=== PATIENT | male | born 1960 | race Caucasian/White ===

== ENCOUNTER 2017-05-14 12:02 | Emergency (ER) | payer OTHER ==
[~2017-05-14] VITALS: Ht 172.7 cm; Wt 88.5 kg
[~2017-05-14 12:02] MED LIST: CIPRO500 MG PO; FLOMAX0.4 MG PO; HYDROCODON-ACE1 EA10 PO
[2017-05-14] MEDS ORDERED: ZOFRAN ODT4 MG PO (13:20)
[2017-05-14] MEDS ORDERED: PERCOCET 5-3251 EACH PO (13:20)
== END 2017-05-14 13:30 | disposition home or self-care (01) ==
LOC: ED 12:02
DX: G89.3 Neoplasm related pain (acute) (chronic) (principal); C25.9 Malignant neoplasm of pancreas, unspecified; Z88.1 Allergy status to other antibiotic agents
CPT/HCPCS: 80053; 85025; 96361; 96374; 96375; 99283; J1170; J2405; J7040

== ENCOUNTER 2017-05-26 05:45 | Inpatient (IN) | payer OTHER ==
[~2017-05-26] VITALS: Ht 172.7 cm; Wt 87.5 kg
[~2017-05-26 05:45] MED LIST changes: +PERCOCET 5-3251 EACH PO; +ZOFRAN ODT4 MG PO
[2017-05-26] MEDS ORDERED: NALTREXONE HCL50 MG PO (06:06)
[2017-05-26] MEDS ORDERED: ASPIRIN EC650 MG PO (06:07)
[2017-05-26] MEDS ORDERED: [UNRECOGNIZED DRUG - OTHER] PO (06:08)
[2017-05-26] MEDS ORDERED: SIMILASE PO (06:08)
--- NOTE | 2017-05-26 11:43 | NUR ---
05/26/17 1143 [facility] SAT 100, O2 DECREASED TO 6L VIA MASK.
--- NOTE | 2017-05-26 13:13 | NUR ---
Patient arrived via stretcher to med surg room 119 on RA with sat of 93%. Patient requesting pain medication upon arrival for c/o abdominal pain 6/10 and siu cathater pain. 2mg of morphine given iv. New bag of IV fluid hung and IV abx running. ABD binder on and mepilex with opside intact without drainage. PANTERA intact with sero sang drainage. patient answers questions appropriatly.
--- NOTE | 2017-05-26 13:42 | NUR ---
PATIENT RESTING COMFTORABLY, PAIN CONTROLLED AT THIS TIME. PATIENT VITALS WITHIN NORMAL LIMITS AT THIS TIME.
--- NOTE | 2017-05-26 14:40 | NUR ---
PT IS RESTING IN BED WITH EYES CLOSED RESPERATIONS EVEN. PT WOKE UP FOR VITALS AND ASKED FOR A DRINK OF WATER THEN WENT BACK TO SLEEP. PT WAS NOT HUNGRY AND DID NOT EAT LUNCH
--- NOTE | 2017-05-26 15:04 | NUR ---
PATIENT PAIN LEVEL AT THIS TIME /10, PATIENT GIVEN 2 PERCOCET PO WITH JELLO AND CRACKERS. PATIENT AWAKE AND ALERT AT THIS TIME, REMAINS ON RA WITH PULSE OX ON. PATIENT'S SISTER IN THE ROOM. NO C/O OF NAUSEA. VITALS DONE.
--- NOTE | 2017-05-26 16:09 | NUR ---
PATIENT ASLEEP RESPERATIONS EVEN UNLABORED, NO S/S OF PAIN. VITALS TAKEN
[2017-05-26] MEDS ORDERED: ALPHA LIPOIC A300 MG PO (17:30)
--- NOTE | 2017-05-26 17:34 | NUR ---
PT IS RESTING IN BED WITH EYES CLOSED, WOKE UP LONG ENOUGH FOR ME TO TAKE A TEMPERATURE THEN FELL BACK ASLEEP. PT HAS NOT ATE DINNER YET
--- NOTE | 2017-05-26 18:40 | NUR ---
PATIENTS URINE OUTPUT IS LOW, 100MLS FOR THE PAST 4 HOURS, PATIENTS PANTERA EMPTIED FOR 150 MLS THIS HOUR. DRAINAGE HAS TURNED FROM SERO SANG TO SANG. DRAINAGE. PATIENT C/O FEELING DIZZY VITALS TAKEN AND REORTED TO DR BAEZA ORDERS RECEIVED FOR AN 8 PACK OF PLATLETS TO BE INFUSED, 2 UNITS OF PACKED RED BLOOD CELLS TO BE HELD, AND ABDOINAL BINDER TO BE IN PLACE AT ALL TIMES. ABDOMINAL BINDER HAS BEEN ON THIS PATIENT SINCE ARRIVAL TO THE FLOOR AND ABDOMINAL DRESSING IS CDI.
--- NOTE | 2017-05-26 18:45 | NUR ---
PATIENTS PANTERA EMPTIED AGAIN SANGUINOUS DRAINAGE AT THIS TIME 30 MLS
--- NOTE | 2017-05-26 19:00 | NUR ---
BEDSIDE SHIFT REPORT RECEIVED FROM BIB DUNLAP. PT IS CURRENTLY RESTING IN BED. TERRY DRAINING FREELY. IVF INFUSING WNL. FABI JUST RECEIVED ORDERS FROM DR. BAEZA TO ADMINSITER 8 PACK OF PLATELETS. PANTERA HAS BEEN DRAINING LARGE AMOUNTS OF SANGUINOUS FLUID. ABDOMINAL BINDER IN PLACE.
--- NOTE | 2017-05-26 20:42 | NUR ---
ASSESSMENT COMPLETE. ALERT/ORIENTED. REPORTS 9/10 ABDOMINAL PAIN, 2 TABS PERCOCET GIVEN. LUNGS CLEAR, RA. HR REGULAR. BOWEL TONES ACTIVE, DENIES NAUSEA. TERRY DRAINING FREELY. MIDLINE DRESSING C/D/I, PANTERA TO LOWER ABDOMEN, SMALL AMOUNT OF DRAINAGE PRESENT, EMPTIED DRAIN OF 80ML SANGUINOUS FLUID. SCD'S IN PLACE. CMS INTACT, NO EDEMA NOTED. ABDOMINAL BINDER IN PLACE. PT PROVIDED WITH SNACK WITH PO PAIN MEDS. DENIES FURTHER REQUESTS AT THIS TIME.
--- NOTE | 2017-05-26 21:00 | NUR ---
REPORT GIVEN FROM SYLVIA. SYLVIA REPORTS PANTERA HAS SLOWED DOWN ON OUTPUT SINCE START OF SHIFT. CALLED FOR UPDATE ON PLATLETS. 2 HOUR WAIT DUE TO THEM HAVING TO BROUGHT IN. UPDATED PATIENT ON CHANGE OF NURSING STAFF. UPDATED ON PLAN OF CARE WITH PLATELET DUE IN 2 HOURS AND PLAN FOR ANTIBIOTIC DUE AT 2200. PATIENT STATING THAT WAS FINE. REPOSITIONED IN BED. PILLOW PLACED UNDER R KNEE.
--- NOTE | 2017-05-26 21:35 | NUR ---
ANCEF STARTED. PATEINT RESTING IN BED WITH EYES CLOSED. PATIENT REQUESTING BLANKET TO SPLINT ABD. STATING PAINFUL IN LOWER R FLANK WHEN DEEP BREATHING. PATIENT EDUCATED ON IMPORTANCE OF DEEP BREATHING AND COUGHING. SPLINTING DEMONSTRATED.
--- NOTE | 2017-05-26 22:50 | NUR ---
patient sleeping with hob elevated. patient has no grimace on face. emptied jason for 30mls of seymour red blood. pateint stating no dizziness or lightheadedness at this time. will continue to monitor. updated patient that we plan of taking vitals at 0000. patient agreed. patient impatient with cares at times. updated on plan for platlets at 0100.
--- NOTE | 2017-05-27 00:15 | NUR ---
VITALS TAKEN. PLATELETS STARTED. PT TOLERATED FIRST 15 MINUTES OF INFUSION WITH NO ISSUES. INCREASED RATE OF INFUSION TO 150ML/HR. PATIENT RESTING IN BED WITH HOB SLIGHTLY ELEVATED. 30MLS OF MINESH RED BLOOD OUT OF PANTERA. PATIENT TALKED WITH US ABOUT CANCER DIAGNOSIS AND HOW IT HAS BEEN A TOUGH COUPLES YEARS. TALKED ABOUT PLAN OF CARE AND HOW FAMILY WILL BE IN TO SEE IN THE MORNING. PATIENT SPIRITS SEEM UP IN REGARDS TO DIAGNOSIS.
--- NOTE | 2017-05-27 02:15 | NUR ---
PLATELETS FINISHED. I AND O DONE. VITALS TAKEN. MAINTANCE FLUIDS RESTARTED.
--- NOTE | 2017-05-27 02:48 | NUR ---
PATIENT HAD LOW URINE OUTPUT ( ONLY 75MLS IN 4 HRS) CALLED DR. BAEZA FOR UPDATE ON URINE OUTPUT AND PANTERA DRAINAGE. NEW ORDER FOR 1 LR L BOLUS TO START NOW. UPDATED HIM ON PATIENTS CONDITION. NO OTHER NEW ORDER. PLAN FOR CBC IN AM. BLOOD ON HOLD FOR AM. LR BOLUS STARTED. PATIENT PLACED ON 1 L OF OXYGEN DUE TO DESATING WHILE SLEEPING TO 88. PATIENT UPDATED ON NEW ORDER. PATIENT REPORTS NO NEED FOR OTHER PAIN MEDICATION AT THIS TIME. WILL CONTINUE TO MONITOR.
--- NOTE | 2017-05-27 02:56 | NUR ---
DR. BAEZA CALLED FOR NEW ORDERS OF PT AND PTT TO BE DRAWN IN AM. UPDATED ORDERS.
--- NOTE | 2017-05-27 03:33 | NUR ---
PATIENT ROUNDED ON AFTER POST INFUSION VITALS COMPLETE. PATIENT SLEEPING WITH RR EVEN AND UNLABORED. CONT TO SAT 98 PERCENT WITH [address] HR IMPROVED. 80MLS OUR OF PANTERA. PAIN WELL CONTROLLED AT THIS TIME.
--- NOTE | 2017-05-27 04:09 | NUR ---
lr bolus finished. patient stating pain has increased. c/o upper abd spasms. morphine 2 mg given for pain. after infusion of morphine on pump patient able to rest with eyes closed and rr even. patient gets very nervous and anxious at times. needing a lot of reassurance.
--- NOTE | 2017-05-27 04:41 | NUR ---
PT HAS HAD INCREASED MINESH RED BLOOD OUT OF HIS PANTERA. ORDERS FROM DR. BAEZA TO GIVEN 8PACK OF PLATELETS. DRAINAGE FROM PANTERA HAS CONTINUED. DECREASED UOP FROM TERRY CATH. PATIENT DID RECEIVE 1L BOLUS OF LR. THE BOLUS DID INCREASED UOP. PATIENT IS PAINFUL WITH ANY TYPE OF MOVEMENT. VERY ANXIOUS AT TIMES. NEEDING A LOT OF REASSURANCE ABOUT MEDICATIONS, LABS, AND PLAN OF CARE. PATIENT HAS LABS IN AM AND TWO UNITS OF PRBC PENDING H AND H. NO DRAINAGE NOTED ON MIDLINE MEPILEX. QUARTER SIZE SHADOWING ON DRAIN DRESSING ON R LOWER QUADRANT. THIS HAS BEEN THE SAME AMOUNT THE ENTIRE SHIFT. ABD BINDER IS TO BE IN PLACE AT ALL TIMES.
--- NOTE | 2017-05-27 05:36 | NUR ---
LAB IN ROOM. PATIENT IS CURRENTLY RESTING IN BED. EYES CLOSED. RR EVEN AND UNLABORED.
--- NOTE | 2017-05-27 07:15 | NUR ---
BEDSIDE REPORT RECIEVED FROM EVELIO WATCH SUPERVISOR RN. PT AWAKE IN BED. COMPLAINS OF SPASMS IN ABD WITH ANY MOVEMENT. PANTERA EMPTIED FOR 55 ML SEROSANGUANOUS FLUID. DRAIN STRIPPED. PT GIVEN 2 MG MS AND PERCOCET BY BIB FRASER TO PREMEDICATE FOR REPOSITIONING. IV FLUIDS INFUSING. LIGHT YELLOW URINE NOTED IN TERRY BAG. PT USES CALL LIGHT APPROPRIATELY. ABD BINDER IN PLACE. LABS REVIEWED. NO CRITICAL VALUES OR CONCERNING TRENDS NOTED.
--- NOTE | 2017-05-27 08:02 | NUR ---
PT SLEEPING IN BED. RESP EVEN, UNLABOURED. O2 SATS 97% PER CONT PULSE OX.
--- NOTE | 2017-05-27 09:45 | NUR ---
SLEEPING CAR CONDUCTOR INITIATED. PT EDUCATED ON SLEEPING CAR CONDUCTOR. STATES FAMILIAR WITH IT, HAD ONE WITH PREVIOUS PROCEDURE. PT ABLE TO MOVE MUCH MORE FREELY THAN EARLIER THIS AM. PT MOVED UP IN BED PER PT REQUEST. TOLERATED POORLY. NOW SITTING UP IN BED FOR BREAKFAST. PANTERA EMPTIED 90 ML SEROSANGUANOUS FLUID. PT GIVEN ATIVAN FOR ANXIETY.
--- NOTE | 2017-05-27 10:01 | NUR ---
MED REC COMPLETE WITH PATIENT INTERVIEW AND PATIENT'S HOME MEDICATIONS. PATIENT FILLS AT [facility].
--- NOTE | 2017-05-27 12:00 | NUR ---
PT SLEEPING IN BED. SATS 97% ON 1 L O2. CHIEF INVESTIGATOR INFUSING. PT USING APPROPRIATELY. SMALL AMOUNT SEROSANGUANOUS DRAINAGE IN PANTERA. CALL LIGHT IN REACH. CONT PULSE OX IN PLACE.
--- NOTE | 2017-05-27 12:48 | NUR ---
PT SITTING IN BED, FINISHING LUNCH. SPEAKS QUIETLY, BUT CLEARLY. HE HAD A SENSE I KNEW ABOUT HIS CONDITION. HONEST, MINESH TALK. PT REQUESTED I CONTACT HIS OBSTETRICS GYNECOLOGY MD AND UPDATE HIM. I CALLED AND LEFT MSG. WILL FOLLOW UP. PT REQUESTED PRAYER. WILL FOLLOW NEEDED
--- NOTE | 2017-05-27 14:40 | NUR ---
RN TO ROOM. RADIO REPAIRMAN EMPTYING PANTERA. SEROSANGUANOUS DRAINAGE NOTED AROUND PANTERA SITE. PANTERA CONTINUOUSLY FILLING WITH SEROSANGUANOUS FLUID AFTER BEING EMPTIED. SLOWS AFTER APPROX 200 ML EMPTIED. THEN PT UP TO BSC AND THEN CHAIR WITH 1 PERSON ASSIST. DRAINAGE IN PANTERA CHANGED TO BRIGHT RED BLOODY LOOKING FLUID, THEN BACK TO SEROSANGUANOUS. UPDATED ON OUTPUT. NO NEW ORDERS RECEIVED. CONTINUING TO MONITOR PANTERA OUTPUT. PRINTED CIRCUIT BOARDS BEVELER INFUSING. PT USING APPROPRIATELY. TOLERATED MOVEMENT FAIR. SITTING UP IN CHAIR. CALL LIGHT IN REACH.
--- NOTE | 2017-05-27 15:15 | NUR ---
MD UPDATED REGARDING DECREASED URINE OUTPUT. NO NEW ORDERS RECEIVED. TO CONTINUE TO MONITOR.
--- NOTE | 2017-05-27 16:26 | NUR ---
REPORT TO BIB DUNNE. TO ASSUME CARE.
--- NOTE | 2017-05-27 17:19 | NUR ---
PT UP IN BED EATING EVENING MEAL DENIES FURTHER NEEDS
--- NOTE | 2017-05-27 19:23 | NUR ---
RECEIVED REPORT FROM DAY SHIFT RN. PATIENT IS RESTING IN BED WITH EYES CLOSED. PATIENT IS ON A PULSE OX AND READINGS ARE WNL. PATIENT IS ON 2L VIA NC. PATIENTS CALL LIGHT IS WITHIN REACH.
--- NOTE | 2017-05-27 21:37 | NUR ---
PATIENT ASSESMENT COMPLETED. PATIENT IS RESTING IN BED VISITING WITH FAMILY. PATIENT RATES PAIN AT A 2/10. PATIENT STATES "THE FACILITATOR IS REALLY WORKING WELL AT CONTROLLING MY PAIN" PATIENTS EVENING MEDICATIONS GIVEN PER ORDER. PATIENT DENIES ANY NEEDS AT THIS TIME. CALL LIGHT IN REACH.
--- NOTE | 2017-05-27 23:56 | NUR ---
PATIENT IS RESTING IN BED WITH EYES CLOSED. BREATHING IS EVEN AND UNLABORED. PULSE OX READINGS ARE WNL. PATIENT IS ON 1L VIA NC. PATIENTS CALL LIGHT IS WITHIN REACH. YARN SPOOLER BUTTON IN REACH.
--- NOTE | 2017-05-28 01:51 | NUR ---
PATIENTS TERRY EMPTIED AND PANTERA EMPTIED AND RECORDED. PATIENT EDUCATED ON THE USE OF THE CLIENT STRATEGIST FOR PAIN CONTROL. PATIENT EXPRESSED CONCERN ABOUT "USING TO MUCH AND ADDICTION" PATIENTS WATER REFILLED. PATIENT DENIES ANY FURTHER NEEDS AT THIS TIME. CALL LIGHT IS WITHIN REACH.
--- NOTE | 2017-05-28 04:01 | NUR ---
PATIENT IS RESTING IN BED WITH EYES CLOSED. PULSE OX READINGS ARE WNL. CALL LIGHT AND TEMPER MILL OPERATOR BUTTON WITHIN REACH.
--- NOTE | 2017-05-28 04:58 | NUR ---
PATIENT RESTED WELL THROUGHOUT THE SHIFT. PATIENTS PANTERA CONTINUES TO HAVE SEROSANGUIONIUS DRAINAGE. PATIENT HAS A PHARMACOLOGY ASSOCIATE FOR PAIN CONTROL. PATIENT STATES "PAIN IS WELL CONTROLLED" PATIENT HAS A TERRY AND HIS URINE OUTPUT IS QS. PATIENT HAS ON SCDS. PATIENT IS ON 1L VIA NC. PATIENT IS ON A PULSE OX. PATIENT IS AAOX3 AND CALLS APPROPRIATELY. PATIENT WAS NOT OOB DURING THE SHIFT. PATIENTIS ON AN ADA DIET, BUT HAS DECREASED APPETITIE. PATIENT DENIES ANY NAUSEA.
--- NOTE | 2017-05-28 06:23 | NUR ---
PATIENTS VITALS TAKEN AND RECORDED. PATIENT CONTINUES TO STATE "THE PAIN PUMP IS DOING WELL FOR MY PAIN" PATIENT DENIES ANY FURTHER NEEDS. CALL LIGHT IS WITHIN REACH.
--- NOTE | 2017-05-28 07:43 | NUR ---
Patient sitting up in bed eating breakfast at this time. Patient would like to get up after breakfast. No other requests at this time.
--- NOTE | 2017-05-28 07:50 | NUR ---
PATIENT SITTING UP IN BED AND BLOOD SUGAR CHECKED 156 AT THIS TIME, BREAKFAST GIVEN TO HIM, PATIENT REFUSED AT THIS TIME TO GET UP TO THE CHAIR. WILL ATTEMPT AGAIN AFTER HE EATS. PATIENTS PAIN TOLERABLE NOW AND HE IS USING THE LABOR RELATIONS CONSULTANT APPROPRIATLY. PULSE OX REMAINS ON.
--- NOTE | 2017-05-28 08:27 | NUR ---
PATIENT ASSISTED UP TO THE CHAIR, 1L OF OXYGEN LEFT ON O2 SAT IS AT 97%. PATIENT REMAINS ALERT AND ORIENTED. PAIN WELL CONTROLLED EXCEPT FOR MOVEMENT OR PALPATION OF ABDOMEN. PANTERA EMPTIED FOR 37 MLS OF PINKISH FLUID AT THIS TIME. DRESSING INTACT WITH OLD DRAINAGE, MEPILEX AND OPSITE. ASSESSMENT COMPLETE. DEPENDENT EDEMA NOTED IN THE PATIENTS SCROTAL AREA.
--- NOTE | 2017-05-28 09:47 | NUR ---
PATIENT'S EMBOSSOGRAPH OPERATOR TURNED OFF AT THIS TIME AND 4MG OF DILAUDID GIVEN PO. PATIENT WILL LET THIS RN KNOW IF THE MEDICATION IS EFFECTIVE PAIN CONTROL. HE CAN HAVE ANOTHER DILAUDID OR HAVE THE EMBOSSOGRAPH OPERATOR BACK ON. PATIENT AND THIS RN HAD A TALK ABOUT GETTING UP TODAY AND AMBULATING WITH EFFECTIVE PAIN MANAGEMENT SO THAT HE COULD WORK ON GETTING TO GO HOME. PATIENT UNDERSTANDING AND WILL ATTEMPT LATER TO GET UP OOB.
--- NOTE | 2017-05-28 10:45 | NUR ---
PATIENT RESTING IN BED WITH HIS EYES CLOSED. VITALS TAKEN.
--- NOTE | 2017-05-28 10:51 | NUR ---
PATIENT IS WANTING TO STAY IN BED AT THIS TIME. WILL REAPPROACH AND OFFER A BEDBATH AFTER HE WAKES UP.
--- NOTE | 2017-05-28 10:55 | NUR ---
PATIENT ASLEEP AT THIS TIME, SISTER IN THE ROOM WITH THE PATIENT, DISCUSSED UPDATE ON MEDICATION GIVEN TO THE PATIENT AT THIS TIME.
--- NOTE | 2017-05-28 11:19 | NUR ---
patient awake for blood sugar check, at this time 240. patient rates his pain at this time 3/10.
--- NOTE | 2017-05-28 12:05 | NUR ---
PATIENT UP TO USE BEDSIDE COMMODE.
--- NOTE | 2017-05-28 12:12 | NUR ---
PATIENT UP AMBULATED UP IN THE HALLWAY WITH STAND BY ASSIST. PATIENT TOLERATED AMBULATION WELL WITH MINIMAL PAIN. PATIENT UP TO THE BATHROOM AFTER HIS WALK TO ATTEMPT A BM.
--- NOTE | 2017-05-28 12:56 | NUR ---
PT UP IN THE CHAIR EATING NOON MEAL, VISITOR IS PRESENT, CALL LIGHT IN HAND
--- NOTE | 2017-05-28 14:17 | NUR ---
PT SLEEPING SOUNDLY VISITOR REMAINS IN ROOM
--- NOTE | 2017-05-28 14:38 | NUR ---
PATIENT RESTING IN BED. VITALS TAKEN AT THIS TIME. NO OTHER REQUESTS.
--- NOTE | 2017-05-28 16:19 | NUR ---
DR BAEZA IN TO SEE PT AFTER HE RETURNS TO BED FROM CHAIR. PAIN CONTROL, CONSTIPATION, AND UPCOMING DC DISCUSSED PT VERBALIZES UNDERSTANDING. PT RESTING IN BED AT THIS TIME SCD'S IN PLACE CALL LIGHT IN HAND.
--- NOTE | 2017-05-28 18:10 | NUR ---
PT REFUSES EVENING MEAL STATES HE IS WORRIED HE HAS NOT HAD A BM IN A COUPLE DAYS. PT REMINDED OF DR BAEZA RESPONSE WHEN THIS WAS DISCUSSED EARLIER. PT TO BED RESTING EYES CLOSED
--- NOTE | 2017-05-28 19:35 | NUR ---
RECEIVED REPORT FROM DAY SHIFT RN. PATIENT IS RESTING IN BED WITH EYES CLOSED. BREATHING IS EVEN AND UNLABORED. CALL LIGHT IN REACH.
--- NOTE | 2017-05-28 22:29 | NUR ---
PATIENT ASSESMENT COMPLETED. PATIENT GIVEN EVENING MEDICATIONS PER ORDER. PATIENT RATES PAIN AT A 6/10. PATIENT GIVEN PRN PAIN MEDICATION PER ORDER. PATIENT ASSISTED TO THE RECLINER FROM THE BED. PATIENT STRUGGLED WITH MOVEMENT. PATIENT IS NOW RESTING IN THE RECLINER. PATIENT HAS A TERRY IN PLACE AND URINE OUTPUT IS QS. PATIENTS PANTERA DRAINED FLUID CONTINUES TO BE SEROSANGUINOUS. PATIENT DENIES ANY FURTHER NEEDS AT THIS TIME. CALL LIGHT IS WITHIN REACH.
--- NOTE | 2017-05-28 23:02 | NUR ---
ROUNDED ON PATIENT. PATIENT AND FAMILY DENY AND COMPLAINTS OR CONCERNS. ALL QUESTIONS ANSWERED.
--- NOTE | 2017-05-29 02:13 | NUR ---
PATIENT RATES PAIN AT A 5/10. PRN PAIN MEDICATION GIVEN PER ORDER. PATIENTS PANTERA AND TERRY DRAINED AND RECORDED. PATIENT DENIES ANY FURTHER NEEDS. CALL LIGHT IN REACH.
--- NOTE | 2017-05-29 04:21 | NUR ---
PATIENT IS RESTING IN BED POSITIONED ON HIS BACK WITH HIS EYES CLOSED. PATIENTS BREATHING IS EVEN AND UNLABORED, RR 16. PAIENT APPEARS TO BE IN NO APPARENT DISTRESS.
--- NOTE | 2017-05-29 04:58 | NUR ---
PATIENT IS RATING PAIN AT AN 8/10. PATIENT GIVEN PRN PAIN MEDICATION. PATIENT DENIES ANY FURTHER NEEDS AT THIS TIME. PANTERA EMPTIED AND RECORDED.
--- NOTE | 2017-05-29 05:21 | NUR ---
PATIENT RESTED ON AND OFF THROUGHOUT THE SHIFT. PATIENT RECEIVED PRN PAIN MEDICATION WHEN AVAILABLE. PATIENTS DRESSING CHANGED AROUND PANTERA IT WAS SATURATED. PATIENTS PANTERA CONTINUES TO PUT OUT A LARGE AMOUNT PF SEROSANGUIONOUS FLUID. PATIENT HAS A TERRY IN PLACE AND URINE OUTPUT IS QS. PATIENTS TERRY WILL BE PULLED BEFORE CHANGE OF SHIFT. PATIENT HAS AN ABD BINDER IN PLACE. PATIENT HAS A MIDLINE DRESSING THAT IS MEPLX AND OPSITE. THE MDILINE DRESSING IS C/D/I. PATIENT IS ON AN ADA DIET W/1800 CALORIE LIMIT. PATIENT HAS SCDS. PATIENT IS A 1PA W/AMBULATION. PATIENT IS VERY PAINFUL W/MOVEMENT.
--- NOTE | 2017-05-29 06:17 | NUR ---
PATIENT STILL RATES PAIN AT A 5/10. PATIENT GIVEN PRN PAIN MEDICATION. PATIENTS TERRY REMOVED PER ORDER. PATIENT TOLERATED TERRY REMOVAL WELL. PATIENT ASSISTED TO THE RECLINER. PATIENT IS VERY PAINFUL W/MOVEMENT. PATIENT IS NOW RESTING IN RECLINER WATCHING TV. PATIENT DENIES ANY FURTEHR NEEDS AT THIS TIME. CALL LIGHT IS WITHIN REACH.
--- NOTE | 2017-05-29 06:29 | NUR ---
PATIENT STILL RATES PAIN AT A 5/10. PATIENT GIVEN PRN PAIN MEDICATION. PATIENTS TERRY REMOVED PER ORDER. PATIENT TOLERATED TERRY REMOVAL WELL PATIENT IS VERY PAINFUL W/MOVEMENT. PATIENT DENIES ANY FURTEHR NEEDS AT THIS TIME. CALL LIGHT IS WITHIN REACH.
--- NOTE | 2017-05-29 07:25 | NUR ---
REPORT RECEIVED FROM INFANTRY SENIOR SERGEANT RN USING 5 P'S. PT SLEEPING IN BED. NO S/S DISTRESS. CALL LIGHT IN REACH.
--- NOTE | 2017-05-29 08:42 | NUR ---
PT UP TO AMBULATE HALLS. PANTERA STRIPPED AND EMPTIED FOR 100 ML SEROSANGUANOUS FLUID. RATES PAIN 5/10. STATES FEELING BETTER THIS MORNING.
--- NOTE | 2017-05-29 10:38 | NUR ---
PT UP TO BR TO ATTEMPT BM. NO SUCCESS. COMPLAINS OF FEELING FULL AND NEEDING BM. REQUESTS SUPPOSITORY OR ENEMA. RN ENCOURAGED PT TO WALK IN HALLS. PT UP TO WALK. MD CALLED. NO ANSWER. TO CONITUE TO ATTEMPT TO REACH.
--- NOTE | 2017-05-29 11:30 | NUR ---
PT COMPLAINS OF PRESSURE IN ABD. CONTINUES TO REFUSE PAIN MED. TALKED WITH PT REGARDING NEED TO STAY ON TOP OF PAIN TO BE ABLE TO MOVE. PT STATES "ITS NOT PAIN MUCH PRESSURE AND NAUSEA." ORDER RECEIVED FROM DR BAEZA FOR SUPP AND ENEMA. PT UP TO AMBULATE HALLS.
--- NOTE | 2017-05-29 13:00 | NUR ---
DRAIN EMPTIED. LIGHT SEROSANGUANOUS FLUID. WORKED WITH PT ON EDUCATION FOR DRAIN CARE AT HOME. SISTER IN ROOM. REFUSES TO LEARN PROCESS. STATES, "I'M NOT THE MEDICAL TYPE." PT STATES, "I'LL HAVE TO MANAGE IT MYSELF." PT TAKES PART IN PROCESS, LEARNING ACTIVELY. PT TO EMPTY WITH ASSISTANCE WHEN NEXT NEEDED TO REINFORCE TEACHING. MD IN TO SEE PT. OK FOR SL TO BE DC'D. ZOFRAN CHANGED TO ORAL. VISITORS IN TO SEE PT. EDUCATION REGARDING DIABETES R/T WHIPPLE PROCEDURE.
--- NOTE | 2017-05-29 16:25 | NUR ---
PT UP TO BR FOR SMALL BM - A FEW HARD PELLETS. UP TO AMBULATE HALLS. PANTERA CONTINUOUSLY DRAINING. EMPTIED 175 ML SEROSANGUANOUS FLUID. ASSISTED TO CHAIR. CALL LIGHT IN REACH.
--- NOTE | 2017-05-29 17:04 | NUR ---
PT HAS HAD LITTLE PAIN THIS SHIFT. RECEIVING IBUPROFEN PRN. SMALL BM AFTER PRUNE JUICE, SUPPOSITORY, FLEETS ENEMAL. PT VOIDING WELL AFTER TERRY OUT. WORKING WITH PT ON EDUCATION FOR HOME DRAIN CARE. PT ABLE TO EMPTY WITH MINIMAL ASSIST. ZOFRAN X 1. NO IV ACCESS. 1 PERSON ASSIST WITH FWW. CALLS APPROPRIATELY. PLAN TO DC TOMORROW. PT AWARE OF PLAN. NEEDS ENCOURAGEMENT. DRAIN CONTINUES TO PUT OUT LARGE AMOUNTS OF SEROSANGUANOUS FLUID. MONITOR Q 1-2 HRS.
--- NOTE | 2017-05-29 21:14 | NUR ---
PT ASSESSMENT COMPLETE. PT RATES PAIN IN ABDOMEN /, DENIES NEEDING ANY PAIN MEDICATION AT THIS TIME, WILL LET STAFF KNOW IF NEEDS MEDICATION. PT DENIES ANY N/V AT THIS TIME, STATES LOW APPETITE AND NAUSEA WITH MEALS. PT HAS NO IV ACCESS AT THIS TIME. PT RESTING QUIETLY IN BED UPON ARRIVAL INTO ROOM. PT UP TO BATHROOM WITH SBA USING FWW, PT TOLERATES AMBULATION WELL. EMPTIED PANTERA DRAIN FOR 10 MLS SEROSANGUINOUS FLUID, WILL CONTINUE TO MONITOR OUTPUT. ABDOMINAL DRESSING IS C/D/I, SHADOWING NOTED. ABD BINDER IN PLACE. CALL LIGHT WITHIN REACH.
--- NOTE | 2017-05-29 22:00 | NUR ---
PT AMBULATED IN HALLS x2 LAPS WITH SBA USING FWW, PT TOLERATED AMBULATION WELL. PT SLOW TO MOVE, BUT STEADY ON FEET. PT BACK TO BED, PANTERA DRAINED AND STRIPPED FOR 30 MLS. CALL LIGHT WITHIN REACH. PT DENIES ANY FURTHER NEEDS AT THIS TIME.
--- NOTE | 2017-05-30 01:30 | NUR ---
PT SLEEPING, RR EVEN AND UNLABORED. PT APPEARS COMFORTABLE AT THIS TIME. PANTERA DRAINED AND STRIPPED FOR 30 MLS SEROSANGUINOUS FLUID. CALL LIGHT WITHIN REACH.
--- NOTE | 2017-05-30 04:52 | NUR ---
PT UP TO BATHROOM, 120 MLS SEROSANGUINOUS FLUID EMPTIED FROM PANTERA DRAIN. PT VOIDING WELL. PT NOW RESTING IN CHAIR. PT DENIES ANY NEED FOR PAIN MEDICATION AT THIS TIME. CALL LIGHT WITHIN REACH. PT DENIES ANY FURTHER NEEDS AT THIS TIME.
--- NOTE | 2017-05-30 06:50 | NUR ---
PT UP WALKING IN HALLS WITH SBA USING FWW, PT DID 2 LAPS, TOLERATED WELL. PT NOW IN BED. BREAKFAST ORDERED. CALL LIGHT WITHIN REACH. PT DENIES ANY FURTHER NEEDS AT THIS TIME.
[2017-05-30] MEDS ORDERED: PANTOPRAZOLE SO40 MG PO (07:40)
[2017-05-30] MEDS ORDERED: MIRALAX17 GM PO (07:40)
[2017-05-30] MEDS ORDERED: HYDROMORPHONE HC4 MG PO (07:41)
[2017-05-30] MEDS ORDERED: MOTRIN IB200 MG PO (07:42)
--- NOTE | 2017-05-30 07:57 | NUR ---
PT AWAKE DURING BEDSIDE REPORT THIS MORNING. PT HAD ALREADY AMBULATED IN HALLS BEFORE SHIFT CHANGE. FELISHA CAME TO SEE PATIENT AT 0730. PT DISCHARGING TODAY. ABDOMINAL BINDER REAPPLIED AND RN ASSISTED PT TO BATHROOM. PT REPORTS POSSIBLE NEED TO HAVE A BOWEL MOVEMENT. PAIN WELL CONTROLLED. PANTERA DRAIN HAS MODERATE SEROSANGUINOUS DRAINAGE IN BULB. SCDs ON BILAT LE. PT TOLERATED BREAKFAST WELL. NO COMPLAINTS OF NAUSEA.
--- NOTE | 2017-05-30 11:33 | NUR ---
PT DRESSED AND WAITING FOR HIS SISTER TO COME AND TAKE HIM HOME. PT IS VERY POLITE, MENTIONED THAT HIS DJ INSTRUCTOR CAME BY YESTERDAY. HE SEEMS THAT HE IS DEALING APPROPRIATELY WITH HIS DIAGNOSIS. THANKED ME FOR COMING BY. WILL FOLLOW NEEDED
--- NOTE | 2017-06-01 01:42 | OR ---
[facility] [address] [place], [place] [address] Signed PREOPERATIVE DIAGNOSES: Large incisional hernia with incarceration. Stage 4 pancreatic cancer (pulmonary metastases). Relative thrombocytopenia (platelets 82,000). POSTOPERATIVE DIAGNOSES: Significant intra-abdominal adhesions, likely accounting for symptoms. Large complex incisional hernia (incarcerated). Ascites (minimal without carcinomatosis). PROCEDURES: Laparotomy with lysis of adhesions to the small bowel. Repair of complex incarcerate d incisional hernia with implantation of Prolene mesh in underlay technique (prolonged, complicated, difficult). ANESTHESIA: General endotracheal (Liliana Ball CRNA) and local 30 cc of 0.25% Marcaine with epinephrine. INDICATION: This 56-year-old white man u nderwent Whipple resection of a pancreatic carcinoma 2 years ago in [place]. He has 2 sons, who live there. He lives locally. He is a patient of Dr. Villagran. He has had significant pain related to a midline incisional hernia. 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 He recently underwent a CT scan again, which showed thickened bowel loops suggestive of possible ischemic bowel. His clinical findings were not consiste n t with it, however, though he did have abdominal pain. Close review of his CT scan shows fascial defect most dominantly in the umbilical area, but with attenuation of the fascia more cephalad to that. His abdominal pain is persistent and largely located i n the region of the incisional herniation. Despite his known metastatic disease of pancreatic cancer. Incisional hernia repair is offered as a palliative approach to his abdominal pain, which is presumed related to the hernia. He understands well the risk s of bleeding, infection, recurrence, and other unforeseen complications, and wishes to proceed. FINDINGS: Although, I had anticipated a relatively small fascial defect, indeed the entire incision from umbilicus to the xiphoid largely was an incisional judson ia. Entry to the abdomen, however, revealed small bowel loops densely adherent and part of the Electronically Signed By: CAROLANN BAEZA MD 06/01/17 0142 PATIENT NAME: ONUR LITTLE OPERATIVE REPORT DATE OF : 58 PHYSICIAN: CAROLANN BAEZA MD REPORT #: [id number] REPORT IS CONFIDENTIAL AND NOT TO BE RELEASED WITHOUT AUTHORIZATION [facility] [address] [place], [place] [address] Signed incarcerated hernia requiring essentially laparotomy with lysis of adhesions. The small bowel was entirely freed up; however, dense adhesions of the central sma ll bowel loops which were clearly not obstructing the bowel were left in situ. There was a small amount of ascites, but no carcinomatosis proper. The liver examined was grossly normal on its surface. Although, he would be a good candidate for component se paration technique repair of the hernia given his limited life span and with the main issue of palliative repair of the hernia, a less complex repair was undertaken with implantation of Prolene mesh in the properitoneal space. A bridging approach was requ i red due to contraction of the fascial edges laterally. The peritoneum was well approximated over the abdominal viscera, providing a biologic barrier to the mesh. The operation was complex and lengthy, lasting 4 times longer than usual and lasting from elliott roximately 8 a.m. to 11:30 a.m. DESCRIPTION OF PROCEDURE: The patient was brought to the operating room, given a general endotracheal anesthetic. Heparin was not administered subcutaneously as he has a relative thrombocytopenia with a platelet count of 82,00 0. Sequential compression device stockings were used. The abdomen was clipped and prepared with a chlorhexidine solution and draped sterilely. A CT scan was available as a reference to the area of greatest fascial defect. Most of the issue appeared to be j ust above the umbilicus. An incision was made in the skin in this area and extended inferiorly a bit. Dissection carried through the subcutaneous tissue. It appeared to be a firm fibrous hernia sac with small bowel contained within it. This was ultimately reduced. It became cleared considering the extent of inflammation of the subcutaneous area (chronic of course) was that simply opening the peritoneal cavity would be most appropriate. In doing so, it became clear that small bowel loops were densely adhere n t to the anterior abdominal wall and somewhat inflamed. Photographs were taken confirming this. Extensive lysis of adhesions was then undertaken of small bowel that was plastered against the abdominal wall in that area and cephalad as well. The fascial de fect extended up to the xiphoid as it turns out. The fascial edges containing the rectus were contracted laterally quite a bit as well. Consideration was made for component separation technique repair, but given his known limited life span and the complexity of the repair and with relative thrombocytopenia, that approach was deemed inadvisable at least at this time. The fascial edges were quite attenuated in the central aspect and part of them contiguous with the peritoneal sac. In the superio r aspect, the viable and li fascial edges were identified and the peritoneum freed from them. The properitoneal space was developed circumferentially around the entire wound extending at least 6 cm. Implantation of Prolene mesh, is a bridging type tech nilj was deemed most advisable Electronically Signed By: CAROLANN BAEZA MD 06/01/17 0142 PATIENT NAME: ONUR LITTLE OPERATIVE REPORT DATE OF : 58 PHYSICIAN: CAROLANN BAEZA MD REPORT #: [id number] REPORT IS CONFIDENTIAL AND NOT TO BE RELEASED WITHOUT AUTHORIZATION [facility] [address] [place], [place] [address] Signed under the clinical circumstances. The peritoneal sac defect was reapproximated with running 2-0 Vicryl suture so as to provide a biologic barrier between the intra-abdominal viscera and the mesh. A segment of 12 inch x 12 i nch large Prolene mesh was cut to an elliptical configuration. Overlap of the fascial edge to the mesh was at least 4 and some areas 6 cm in length. The mesh was secured in an underlay technique in the properitoneal space with interrupted 0 Prolene suture s with Prolene pledgets. Multiple sutures were placed. Some of them far lateral and some on the fascial edge itself. The intervening defect fascia was several centimeters in the central portion, but the fascial edge could not be pulled to the midline witho ut components release laterally and it was deemed inadvisable under the circumstances. Once this was complete, a separate stab incision was made in the right lower quadrant, for passage of a 7 mm flat Bill drain. Irrigation was undertaken. Photographs we re taken throughout the operation. Evangelist's layer was reapproximated with interrupted 2-0 Vicryl and skin closed with running subcuticular 3-0 Vicryl. Steri-Strips were applied as was the Mepilex silver sponge dressing and an Opsite. The drain was support representative d to bulb suction. The patient tolerated the procedure well. Operation was prolonged, complicated, and difficult. He was redosed with Ancef 2 g at 2 hours into the operation. A Abdul catheter was placed at the conclusion of the procedure given its length o f operation and found to have no evidence of urinary retention proper. Specifically, the volume of urine was less than 100 cc. MD DEV Sheth/Edgarl /[id number] Electronically Signed By: CAROLANN BAEZA MD 06/01/17 0142 PATIENT NAME: ANABELONUR OPERATIVE REPORT DATE OF : 58 PHYSICIAN: CAROLANN BAEZA MD REPORT #: [id number] REPORT IS CONFIDENTIAL AND NOT TO BE RELEASED WITHOUT AUTHORIZATION
== END 2017-05-30 10:43 | disposition home or self-care (01) | DRG 336 ==
LOC: DS 05:45 → MS 12:45 → DS 12:45 → MS 12:45
PROVIDERS: ADMIT Surgery
PROC: 0WUF4JZ Supplement Abdominal Wall with Synthetic Substitute, Percutaneous Endoscopic Approach (ICD-10-PCS; principal; 2017-05-26 06:45)
PROC: 0DN84ZZ Release Small Intestine, Percutaneous Endoscopic Approach (ICD-10-PCS; 2017-05-26 06:45)
DX: K43.2 Incisional hernia without obstruction or gangrene (principal); C25.9 Malignant neoplasm of pancreas, unspecified; R18.8 Other ascites; K21.9 Gastro-esophageal reflux disease without esophagitis; Z51.5 Encounter for palliative care; D69.6 Thrombocytopenia, unspecified
CPT/HCPCS: 00750; 36415; 36430; 80048; 80053; 85025; 85610; 85730; 86850; 86900; 86901; 86920; 94760; 94762; 96361; 96365; 96375; 96376; C1781; G0378; J0330; J0690; J1100; J1170; J2250; J2270; J2370; J2405; J2704; J3010; J7120; P9035

== ENCOUNTER 2017-06-30 06:50 | Day surgery (SDC) | payer OTHER ==
[~2017-06-30] VITALS: Ht 172.7 cm; Wt 83.9 kg
[~2017-06-30 06:50] MED LIST changes: +ALPHA LIPOIC A300 MG PO; +ASPIRIN EC650 MG PO; +HYDROMORPHONE HC4 MG PO; +MIRALAX17 GM PO; +MOTRIN IB200 MG PO; +NALTREXONE HCL50 MG PO; +PANTOPRAZOLE SO40 MG PO; +SIMILASE PO; +[UNRECOGNIZED DRUG - OTHER] PO
--- NOTE | 2017-06-30 10:26 | NUR ---
PT HAS BEEN UPDATED ON WAIT. WARM BLANKETS GIVEN. IV PATENT.
--- NOTE | 2017-06-30 11:43 | NUR ---
06/30/17 1143 Yakelin Sommers 1139 PATIENT ARRIVES TO PACU SLEEPING, NODS HEAD TO VERBAL STIMULI, THEN BACK TO SLEEP. RESP EVEN AND UNLABORED, OCCASIONAL SNORING, MASK AT 6 LITERS.
[2017-06-30] MEDS ORDERED: OXYCODON-ACETA1 EAC2 PO (11:51)
[2017-06-30] MEDS ORDERED: MAPAP325 MG PO (11:52)
--- NOTE | 2017-06-30 12:44 | NUR ---
PT SEEMED CALM, RELAXED WITH WARM BLANKET ON HIS ARM IN PREP FOR POSSIBLE IV SITE. FRIENDLY, INFORMED REGARDING TODAY. REQUESTED PRAYER, WILL FOLLOW NEEDED
--- NOTE | 2017-06-30 14:13 | NUR ---
HAS TAKEN PO WELL JUICE WATER CRACKERS SOUP JELLO. DENIES NEED FOR PAIN MEDICINE. RATES PAIN 3/10. DENIES NAUSEA AFTER EATING. HAS VOIDED 350MLS. AMB WELL SLOW BUT WELL. WANTS TO GO HOME.
--- NOTE | 2017-07-24 12:15 | OR ---
[facility] [address] [place], [place] [address] Signed DATE OF PROCEDURE: 06/30/17 PREOPERATIVE DIAGNOSES Stage IV pancreatic carcinoma, status post Whipple resection. Symptomatic right inguinal hernia. POSTOPERATIVE DIAGNOSES Stage IV pancreatic carcinoma status post Whipple resection. Symptomatic right inguinal hernia. Right inguinal hernia indirect sac and attenuation of floor. PROCEDURE Repair of right inguinal hernia with high ligation and excision of hernia, indirect sac and imbrication of floor. SURGEON: Carolann Baeza MD ANESTHESIA General endotracheal (Julita Pan, COURT SPECIALIST) and local 20 mL of 0.25% Marcaine with epinephrine. INDICATION This 57-year-old white man is a patient of Dr. Quentin Villagran and known to me from the past having undergone repair in the past several weeks of a large incisional hernia related to an operation performed in [facility] (Whipple resection) for pancreatic carcinoma. He is known to have pulmonary nodules but as regard to the abdomen, no sign of local recurrence or ascites particularly. He had a complicated incisional hernia, which he underwent repair by me several weeks ago, as described including implantation of Prolene mesh in an underlay technique. He has since become aware of a right inguinal hernia. It is reducible. It is symptomatic enough that he has been using a truss and indeed for ambulation, he is using a wheelchair. He wishes to have the hernia repaired. Mindful of his advanced state of pancreatic cancer but surprisingly high level of functioning, repair of the right inguinal hernia is offered. The patient has done research on the internet and now prefers not to have any implantation of mesh unless absolutely essential. This despite the fact he has implanted mesh from his incisional hernia repair already. He is admitted at this time to undergo right inguinal hernia repair without mesh if possible. He understand the risks of bleeding, infection, recurrence, and so on. Electronically Signed By: CAROLANN BAEZA MD 07/24/17 1215 PATIENT NAME: ONUR LITTLE OPERATIVE REPORT DATE OF : 58 PHYSICIAN: CAROLANN BAEZA MD REPORT #: [id number] REPORT IS CONFIDENTIAL AND NOT TO BE RELEASED WITHOUT AUTHORIZATION [facility] [address] [place], [place] [address] Signed FINDINGS A relatively large indirect sac was noted. There was no sliding component or incarcerated hollow viscus. He did have more intraabdominal fluid than expected. I would not say he has ascites grossly but does have possibly the beginning of some ascites. High ligation of the sac was accomplished without damage to the cord structures. The floor itself was somewhat attenuated, not in perfect health but was repaired with imbrication of the tendon of the transversus abdominis to the shelving edge of Poupart's ligament. Mesh was not implanted. PROCEDURE IN DETAIL The patient was brought to the operating room and given a general endotracheal anesthetic. The abdomen was clipped and prepped with chlorhexidine solution and draped sterilely. Preoperative antibiotic Ancef was given and sequential compression device stockings used and heparin used as well subcutaneously. An incision was made cephalad to the right pubic tubercle. Dissection carried through the subcutaneous tissue with electrocautery. The external oblique was incised along its fibers and opened revealing the underlying cord. Relatively sizable ilioinguinal nerve branch was identified and dissected free from the cremasteric muscle fibers of the cord. The nerve was reflected around the external oblique inferiorly. The cord was mobilized from the floor with blunt and electrocautery dissection and encircled with a Wheeler drain. Electrocautery was used to transect the cremasteric muscle fibers around the proximal portion of the cord revealing the indirect hernia sac in the medial aspect. This was gently dissected away from the cord structures entirely, isolating it fully. It was relatively long at least 8-10 cm. It was incised and inspection internally undertaken. There was a fair amount, more fluid than normal but not gross ascites per se. The hernia neck was oversewn with 3-0 silk suture doubly applied and redundant hernia sac amputated and passed for pathology. Inspection of the floor of the canal showed some attenuation of the floor, but no direct hernia proper. An Allis clamp was applied to the tendon of the transversus abdominis. Using interrupted 2-0 Prolene sutures, the floor was repaired with interrupted suture between the shelving edge of Poupart's ligament and the tendon of the transversus abdominis. Proximally at the internal ring, there was enough room to accommodate the cord without compromise. 10 mL of 0.25% Marcaine with epinephrine was injected locally. The cord was replaced into the canal as was the ilioinguinal nerve and the external oblique reapproximated over it partially with 2-0 Vicryl suture taking special care to avoid encumbrance of the nerve itself. An additional 10 mL of 0.25% Marcaine was injected locally. Evangelist's layer was Electronically Signed By: CAROLANN BAEZA MD 07/24/17 1215 PATIENT NAME: ONUR LITTLE OPERATIVE REPORT DATE OF : 58 PHYSICIAN: CAROLANN BAEZA MD REPORT #: [id number] REPORT IS CONFIDENTIAL AND NOT TO BE RELEASED WITHOUT AUTHORIZATION [address], [place] [address] Signed reapproximated with interrupted 2-0 Vicryl and the skin closed with running subcuticular 3-0 Vicryl. Steri-Strips were applied as was a Mepilex silver sponge dressing and an OpSite. The patient was ultimately extubated and transferred to recovery in good condition having suffered no complications. Sponge, needle, and instruments counts reported as correct x3. MD DEV Sheth/Edgarl /[id number] cc: MD Dr. Quentin Eagle Electronically Signed By: CAROLANN BAEZA MD 07/24/17 1215 PATIENT NAME: ANABELONUR P OPERATIVE REPORT DATE OF : 58 PHYSICIAN: CAROLANN BAEZA MD REPORT #: [id number] REPORT IS CONFIDENTIAL AND NOT TO BE RELEASED WITHOUT AUTHORIZATION
== END 2017-06-30 14:10 | disposition home or self-care (01) ==
LOC: DS 06:50
PROVIDERS: Surgery
PROC: 0YQ50ZZ Repair Right Inguinal Region, Open Approach (ICD-10-PCS; principal; 2017-06-30 08:45)
DX: K40.90 Unilateral inguinal hernia, without obstruction or gangrene, not specified as recurrent (principal); E11.9 Type 2 diabetes mellitus without complications; Z85.07 Personal history of malignant neoplasm of pancreas; Z91.030 Bee allergy status; Z91.010 Allergy to peanuts; Z90.49 Acquired absence of other specified parts of digestive tract; Z98.890 Other specified postprocedural states
CPT/HCPCS: 00830; J0330; J0690; J1100; J1644; J1885; J2250; J2405; J2704; J3010; J7120